=== PATIENT | female | born 1965 | race Caucasian/White ===

== ENCOUNTER 2024-10-26 14:57 | Observation (INO) ==
[2024-10-26 15:44] LABS: Basophils #(Absolute) Auto 0.1 (0.0-0.1); Basophils%(Percent) Auto 1.4 (0.1-0.85); Eosinophils#(Absolute)Auto 0.1 (0.0-0.2); Eosinophils%(Percent) Auto 1.8 % (0.4-2.8); Granulocytes % - Auto 73.7 % (47.8-71.3); Granulocytes#(Absolute)- Auto 4.5 (2.3-6.0); Hematocrit 34.4 % (35.9-46.7); Mean Corpuscular Volume 93.1 fl (81.0-93.7); Monocytes #(Absolute)- Auto 0.6 (1.1-3.1); Monocytes %(Percent)- Auto 9.3 % (3.6-9.8); Platelet Count 194 K/uL (152-353); White Blood Count 6.1 K/uL (4.3-9.3)
--- NOTE | 2024-10-26 15:51 | Emergency Department Note ---
HPI - Chest Pain General Chief Complaint: Chest Pain Stated Complaint: chest pain at dialysis Source: patient Mode of arrival: ambulance Limitations: no limitations History of Present Illness HPI narrative: The patient is 59 years old female resident of the group home who is brought to the ED from dialysis after she developed chest pain during dialysis. Patient states that her pain is mainly on the left and radiates to the back. She denies diaphoresis or radiation to the Upper extremities. MD complaint: Reports chest pain Pertinent past history: Reports coronary artery disease Onset (ago): hour(s) Prior episodes: Yes Onset: Reports during rest Pain location: Reports left chest Pain radiation: Reports left scapula Severity: mild-moderate Quality: Reports sharp Treatment prior to arrival: Reports none Risk Factors Coronary artery disease risk factors: Reports hypertension Related Data On Oral Contraceptives: No Allergies Allergy/AdvReac Type Severity Reaction Status Date / Time tramadol Allergy Unknown Verified 10/26/24 15:42 amoxicillin (From Amoxil) Allergy Verified 10/26/24 15:42 Review of Systems Status of ROS 10 or more systems reviewed and unremark able except as noted in history and below Constitutional Denies: fever, chills, change in weight, fatigue, malaise or night sweats Eyes Denies: change in vision, blurry vision, blind spots, light sensitivity or eye discomfort Ears, nose, mouth, and throat Denies: throat pain, neck pain, throat swelling, difficulty swallowing, hoarseness or mouth pain Cardiovascular Reports: chest pain; Denies: palpitations, edema, swelling of feet/ankles or lightheadedness Respiratory Denies: shortness of breath, cough, wheezing, stridor, pain on inspiration or change in phlegm color Gastrointestinal Denies: abdominal pain, nausea, vomiting, coffee grounds in vomit or heartburn Genitourinary Denies: painful urination, urinary frequency, urinary urgency, urinary incontinence or blood in urine Musculoskeletal Denies: back pain, neck pain, extremity pain, extremity swelling or joint pain Neurological Denies: headache, numbness in extremities, weakness in extremities, lack of coordination or dizziness Psychiatric Denies: anxiety, mood swings, panic attacks, change in sleep pattern, hopelessness or loss of interest Endocrine Denies: excessive urination, excessive thirst, fatigue, cold intolerance or excessive sweating Hematologic/Lymphatic Denies: easy bruising, easy bleeding, enlarged lymph nodes or other Allergic/Immunologic Denies: hives, throat swelling, tongue swelling, facial swelling or wheezing Exam Constitutional: normal general appearance, no apparent distress, average body habitus, no limitations and alert Vital Signs - 24 hr 10/26/24 15:00 10/26/24 15:00 10/26/24 15:30 Temperature 98.6 F Pulse Rate 112 H 110 H Respiratory Rate 21 22 Blood Pressure 134/70 136/75 Pulse Oximetry 88 L 88 L 92 L Oxygen Delivery Me thod Room Air Room Air Nasal Cannula Oxygen Flow Rate 2 10/26/24 16:00 10/26/24 16:30 10/26/24 16:40 Temperature Pulse Rate 102 H 94 H Respiratory Rate 20 20 Blood Pressure 122/75 126/94 122/75 Pulse Oximetry 95 94 L Oxygen Delivery Me thod Nasal Cannula Nasal Cannula Oxygen Flow Rate 2 2 10/26/24 17:00 10/26/24 17:30 Temperature Pulse Rate 93 H 95 H Respiratory Rate 20 21 Blood Pressure 127/90 127/97 Pulse Oximetry 93 L 90 L Oxygen Delivery Me thod Nasal Cannula Nasal Cannula Oxygen Flow Rate 2 2 HENMT: normocephalic, head/scalp atraumatic, hearing grossly normal bilaterally and external ears normal Eyes: PERRL, EOMs intact bilaterally, conjunctivae normal and no scleral icterus Neck/C-Spine: visual inspection normal, trachea midline, cervical spine nontender and cervical full ROM noted Lymph: no lymphadenopathy noted and no lymphedema noted Chest: inspection of chest normal, palpation of chest normal and inspection of breasts normal Respiratory: breath sounds equal bilaterally, normal respiratory effort and clear to auscultation bilaterally Cardiovascular: normal heart rate noted, regular rhythm noted, no gallop and no rub Gastrointestinal: abdomen normal to inspection, abdomen soft to palpation and nontender to palpation Genitourinary: no CVA tenderness and bladder normal to palpation Back/Pelvis: spine normal to inspection, no thoracic spine tenderness, no lumbar spine tenderness and thoracic spine ROM normal Extremities: normal to inspection, normal to palpation and no tenderness Neurology: machine sander II-XII intact, no movement abnormality noted and no focal motor deficit noted Psychiatry: mental status grossly normal, oriented x3, thought process normal and cooperative Feel stressed/tense/nervous/anxious/difficulty sleeping: not at all Due to disability, difficulty making decisions: No Skin: skin color normal, no rash, no lesions, no ecchymosis noted and no wounds Course Course Hospital Course: 59 years old female resident of the group home who is brought to the ED from dialysis after she developed chest pain during dialysis. Patient states that her pain is mainly on the left and radiates to the back. She denies diaphoresis or radiation to the Upper extremities. EKG showed no acute finding. Chest x-ray showed no acute cardiopulmonary process. Labs were significant for elevated kidney function. Troponins are elevated to 100. This appears to be her baseline. Due to ongoing chest pain we will admit the patient on the floor for observation. Vital Signs Vital signs: Vital Signs Temperature 98.6 F 10/26/24 15:00 Pulse Rate 112 H 10/26/24 15:00 Respiratory Rate 21 10/26/24 15:00 Blood Pressure 134/70 10/26/24 15:00 Pulse Oximetry 88 L 10/26/24 15:00 Oxygen Delivery Method Room Air 10/26/24 15:00 Temperature 98.6 F 10/26/24 15:00 Pulse Rate 104 H 10/26/24 18:30 Respiratory Rate 22 10/26/24 18:30 Blood Pressure 137/90 10/26/24 18:30 Pulse Oximetry 93 L 10/26/24 18:30 Oxygen Delivery Method Nasal Cannula 10/26/24 18:30 Oxygen Flow Rate 2 10/26/24 18:30 MDM - Chest Pain MDM Narrative Medical decision making narrative: Spoke with Stephanie from utilization review concerning admission of the patient. I have also spoken with Dr. Durham concerning the patient condition and she has accepted the patient and will take her at her current lab levels. Patient will be prepared for admission. Differential Diagnosis Differential diagnosis: Likely stable angina, atypical chest pain and chest pain Lab Data Labs: Lab Results 10/26/24 Range/Units 15:41 WBC 6.1 (4.3-9.3) K/uL RBC 3.7 L (4.00-5.50) M/uL Hgb 11.0 L (12.5-15.8) gm/dL Hct 34.4 L (35.9-46.7) % MCV 93.1 (81.0-93.7) fl MCH 29.7 (27.6-32.2) pg MCHC 31.9 L (33.1-35.3) g/dl RDW 24.7 H (11.4-14.2) % Plt Count 194 (152-353) K/uL MPV 8.1 (6.9-10.8) fl Gran % 73.7 H (47.8-71.3) % Lymph % (Auto) 13.8 L (20.0-43.0) % Cotton % (Auto) 9.3 (3.6-9.8) % Eos % (Auto) 1.8 (0.4-2.8) % Baso % (Auto) 1.4 H (0.1-0.85) Lymph # (Auto) 0.8 L (1.1-3.1) Cotton # (Auto) 0.6 L (1.1-3.1) Eos # (Auto) 0.1 (0.0-0.2) Baso # (Auto) 0.1 (0.0-0.1) Absolute Gran (auto) 4.5 (2.3-6.0) Sodium 142 (136-145) mmol/L Potassium 3.4 L (3.6-5.2) mmol/L Chloride 101.0 (98-107) mmol/L Carbon Dioxide 30 (21-32) mmol/L Anion Gap 11.0 (4-14) mEq/L BUN 25 H (7-18) mg/dL Creatinine 3.8 H* (0.6-1.3) mg/dL Estimated GFR 13.2 (>59.9) Glucose 92 (70-110) mg/dL Calcium 8.5 (8.5-10.1) mg/dL Total Bilirubin 0.93 (0.0-1.0) mg/dL AST 13 L (15-37) U/L ALT 16 L (30-65) U/L Alkaline Phosphatase 102 (50-136) U/L Troponin I High Sens 100.60 H* (4.0-60.4) ng/L Total Protein 6.2 L (6.4-8.2) g/dL Albumin 3.2 L (3.4-5.0) g/dL Imaging Data Imaging ordered: Chest x-ray Attestation: I personally reviewed and interpreted this imaging study as follows: My impression: No acute cardiopulmonary process noted ECG Data Attestation: I personally reviewed and interpreted this ECG as follows: ECG interpretation date: 10/26/24 ECG interpretation time: 03:35 Interpretation: Atrial fibrillation with a ventricular rate of 95. Discharge Plan Discharge Patient Disposition: Admitted As Observation Condition: Improved Clinical Impression: Chest pain, Atypical chest pain, End-stage renal disease on hemodialysis, Anemia due to chronic kidney disease, Elevated troponin Time of Disposition: 17:42 [facility] Medical History Chronic renal failure Hypertension Congestive heart failure Social History (Updated 08/31/24 @ 05:17 by Bria Vences APRN) Smoking status: never smoker Within the past year, how often did you have a drink containing alcohol: never Score interpretation: A score less than 3 is consistent with normal alcohol consumption. Non-prescribed substance use: denies use What is your current living situation: I have a place to live at present, but am concerned about future Problems where you live: no known problems In the past 12 months, utilities in danger of being shut off: no In past 12 months, lack of transportation kept you from medical appts, meetings, work, or getting things needed for daily living: No Known occupational exposures/hazards: No Feel stressed/tense/nervous/anxious/difficulty sleeping: not at all Life stressor details: Current medical condition Due to disability, difficulty making decisions: No
[2024-10-26 16:00] LABS: Potassium 3.4 mmol/L (3.6-5.2)
[2024-10-26] MEDS: NITROGLYCERIN 0.4 MG TAB.SUBL (BOTTLE) SL ONE (16:40)
[2024-10-26] MEDS ORDERED: MORPHINE SULFATE 2 MG/ML CARTRIDGE IV ONE (17:29)
[2024-10-26] MEDS: MORPHINE SULFATE 2 MG/ML CARTRIDGE IV ONE (17:31)
[2024-10-26] MEDS ORDERED: ONDANSETRON HCL/PF 4 MG/2 ML VIAL INJ PRN (17:42)
[2024-10-26] MEDS: NITROGLYCERIN 0.4 MG TAB.SUBL SL ONE (18:59)
[2024-10-26] MEDS: MORPHINE SULFATE 2 MG/ML CARTRIDGE IV PRN (21:09)
[2024-10-27 05:56] LABS: Basophils #(Absolute) Auto 0.1 (0.0-0.1); Basophils%(Percent) Auto 1.5 (0.1-0.85); Eosinophils#(Absolute)Auto 0.1 (0.0-0.2); White Blood Count 5.5 K/uL (4.3-9.3)
[2024-10-27 05:58] LABS: Eosinophils%(Percent) Auto 2.1 % (0.4-2.8); Granulocytes % - Auto 77.7 % (47.8-71.3); Granulocytes#(Absolute)- Auto 4.3 (2.3-6.0); Mean Corpuscular Volume 93.6 fl (81.0-93.7); Monocytes #(Absolute)- Auto 0.5 (1.1-3.1); Monocytes %(Percent)- Auto 9.2 % (3.6-9.8); Platelet Count 181 K/uL (152-353)
[2024-10-27 06:28] LABS: Potassium 3.7 mmol/L (3.6-5.2)
[2024-10-27 07:36] VITALS: BP 135/87; PULSE 99; RESP 19; TEMP 96.1
[2024-10-27] MEDS: ACETAMINOPHEN 325 MG TABLET PO PRN (08:30)
--- NOTE | 2024-10-27 10:12 | Short Stay Summary ---
H&P: HPI History of Present Illness Chief complaint: Chest Pain Narrative: This is a 59-year-old female patient with past medical history including A-fib, Anemia in CKD, hypertension, CHF and end-stage renal disease on dialysis who presented to the ER on yesterday afternoon for complaints of chest pain following dialysis. Patient reports this is the second or third time that she has had these pains following her dialysis treatment. Patient reports pain mainly on the left side and radiates through to her back. Denies any diaphoresis or radiation into her upper extremities. Cardiac workup was performed in the ER. EKG showed no acute findings. Chest x-ray showed no acute cardiopulmonary process. Labs were significant for elevated kidney function. And troponin elevated 100 which appears to be her baseline. Due to ongoing chest pain she was admitted to the floor for observation cardiac rule out. Her observation stay was uneventful. Troponin trended down to 93.4 on this morning's labs. She denies any chest pain at present however she has continued to have left upper back pain. We are treating this with a muscle relaxer today and she will be discharged back home to the LTC. Review of Systems Status of ROS 10 or more systems reviewed and unremark able except as noted in history and below Constitutional Denies: fever, chills, change in weight, fatigue, malaise or night sweats Eyes Denies: change in vision, blurry vision, blind spots, light sensitivity or eye discomfort Ears, nose, mouth, and throat Denies: throat pain, neck pain, throat swelling, difficulty swallowing, hoarseness or mouth pain Cardiovascular Denies: chest pain, palpitations, edema, swelling of feet/ankles, lightheadedness or shortness of breath with exertion Respiratory Denies: shortness of breath, cough, wheezing, stridor, pain on inspiration or change in phlegm color Gastrointestinal Denies: abdominal pain, nausea, vomiting, coffee grounds in vomit, heartburn or difficulty swallowing Genitourinary Denies: painful urination, urinary frequency, urinary urgency, urinary incontinence or blood in urine Musculoskeletal Reports: back pain; Denies: neck pain, extremity pain, extremity swelling or joint pain Integumentary/Breast Denies: rash, skin swelling or jaundice Neurological Denies: headache, numbness in extremities, weakness in extrem ities, lack of coordination or dizziness Psychiatric Denies: anxiety, mood swings, panic attacks, change in sleep pattern, hopelessness or loss of interest Endocrine Denies: excessive urination, excessive thirst, fatigue, cold intolerance or excessive sweating Hematologic/Lymphatic Reports: easy bruising and easy bleeding; Denies: enlarged lymph nodes Allergic/Immunologic Denies: hives, throat swelling, tongue swelling, facial swelling or wheezing PFS PFSH Medical History Chronic renal failure Hypertension Congestive heart failure Influenza Social History Smoking status: never smoker Within the past year, how often did you have a drink containing alcohol: never Score interpretation: A score less than 3 is consistent with normal alcohol consumption. Non-prescribed substance use: denies use What is your current living situation: I have a place to live at present, but am concerned about future Problems where you live: no known problems In the past 12 months, utilities in danger of being shut off: no In past 12 months, lack of transportation kept you from medical appts, meetings, work, or getting things needed for daily living: No Known occupational exposures/hazards: No Highest level of school completed/degree received: [employer] Feel stressed/tense/nervous/anxious/difficulty sleeping: not at all Life stressor details: Current medical condition Due to disability, difficulty making decisions: No Meds Home Medications and Allergies Home Medications Medication Instructions Recorded Confirmed Type acetaminophen 325 mg tablet 650 mg PO Q6H PRN fever or pain 10/26/24 10/26/24 History apixaban 5 mg tablet (Eliquis) 5 mg PO Q12H 10/26/24 10/26/24 History atorvastatin 40 mg tablet 40 mg PO .hs 10/26/24 10/26/24 History citalopram 20 mg tablet 20 mg PO DAILY 10/26/24 10/26/24 History furosemide 80 mg tablet 80 mg PO .COMPLEX 10/26/24 10/27/24 History levothyroxine 25 mcg tablet 25 mcg PO DAILY 10/26/24 10/26/24 History metoprolol succinate 25 mg 25 mg PO DAILY 10/26/24 10/26/24 History tablet,extended release 24 hr pantoprazole 40 mg tablet,delayed 40 mg PO DAILY 10/26/24 10/26/24 History release sertraline 25 mg tablet 25 mg PO DAILY 10/26/24 10/26/24 History sodium zirconium cyclosilicate 10 10 g PO DAILY 10/26/24 10/26/24 History gram oral powder packet (Lokelma) Allergies Allergy/AdvReac Type Severity Reaction Status Date / Time tramadol Allergy Unknown Verified 10/26/24 15:42 amoxicillin (From Amoxil) Allergy Verified 10/26/24 15:42 Exam Constitutional: abnormal general appearance (disheveled), (chronically ill) and (appears older than stated age), no apparent distress, abnormal body habitus (obese), limitations noted (physical limitations) and alert Vital Signs - 24 hr 10/26/24 15:00 10/26/24 15:00 10/26/24 15:30 Temperature 98.6 F Pulse Rate 112 H 110 H Pulse Rate [Right Radial] Pulse Rate [Right] Respiratory Rate 21 22 Blood Pressure 134/70 136/75 Blood Pressure [Ri ght Arm] Pulse Oximetry 88 L 88 L 92 L Oxygen Delivery Me thod Room Air Room Air Nasal Cannula Oxygen Flow Rate 2 10/26/24 16:00 10/26/24 16:30 10/26/24 16:40 Temperature Pulse Rate 102 H 94 H Pulse Rate [Right Radial] Pulse Rate [Right] Respiratory Rate 20 20 Blood Pressure 122/75 126/94 122/75 Blood Pressure [Ri ght Arm] Pulse Oximetry 95 94 L Oxygen Delivery Me thod Nasal Cannula Nasal Cannula Oxygen Flow Rate 2 2 10/26/24 17:00 10/26/24 17:30 10/26/24 18:00 Temperature Pulse Rate 93 H 95 H 91 H Pulse Rate [Right Radial] Pulse Rate [Right] Respiratory Rate 20 21 19 Blood Pressure 127/90 127/97 133/96 Blood Pressure [Ri ght Arm] Pulse Oximetry 93 L 90 L 88 L Oxygen Delivery Me thod Nasal Cannula Nasal Cannula Nasal Cannula Oxygen Flow Rate 2 2 2 10/26/24 18:30 10/26/24 19:00 10/26/24 20:00 Temperature Pulse Rate 104 H 98 H 93 H Pulse Rate [Right Radial] Pulse Rate [Right] Respiratory Rate 22 20 20 Blood Pressure 137/90 118/71 135/83 Blood Pressure [Ri ght Arm] Pulse Oximetry 93 L 97 94 L Oxygen Delivery Me thod Nasal Cannula Nasal Cannula Nasal Cannula Oxygen Flow Rate 2 2 2 10/26/24 20:30 10/26/24 21:00 10/26/24 21:00 Temperature 98.6 F 97.9 F Pulse Rate 98 H Pulse Rate [Right Radial] 83 Pulse Rate [Right] Respiratory Rate 20 18 Blood Pressure 118/71 Blood Pressure [Ri ght Arm] 125/80 Pulse Oximetry 97 99 Oxygen Delivery Me thod Nasal Cannula Nasal Cannula Oxygen Flow Rate 2 2 10/26/24 21:00 10/26/24 23:54 10/27/24 04:00 Temperature 97.9 F 97.9 F 97.6 F Pulse Rate Pulse Rate [Right Radial] 94 H 101 H Pulse Rate [Right] 83 Respiratory Rate 18 18 18 Blood Pressure Blood Pressure [Ri ght Arm] 125/80 132/86 129/86 Pulse Oximetry 99 90 L 98 Oxygen Delivery Me thod Room Air Nasal Cannula Nasal Cannula Oxygen Flow Rate 2 2 10/27/24 07:34 Temperature 96.1 F L Pulse Rate Pulse Rate [Right Radial] 99 H Pulse Rate [Right] Respiratory Rate 19 Blood Pressure Blood Pressure [Ri ght Arm] 135/87 Pulse Oximetry 97 Oxygen Delivery Me thod Room Air Oxygen Flow Rate HENMT: normocephalic, head/scalp atraumatic, hearing grossly normal bilaterally and external ears normal Eyes: PERRL, EOMs intact bilaterally, conjunctivae normal and no scleral icterus Neck/C-Spine: visual inspection normal, trachea midline, cervical spine nontender and cervical full ROM noted Lymph: no lymphadenopathy noted and no lymphedema noted Chest: inspection of chest normal, palpation of chest normal and inspection of breasts normal Respiratory: breath sounds equal bilaterally, normal respiratory effort and clear to auscultation bilaterally Cardiovascular: normal heart rate noted, rhythm abnormal (A-fib) (irregular), no gallop and no rub Gastrointestinal: abdomen normal to inspection, abdomen soft to palpation and nontender to palpation Genitourinary: no CVA tenderness and bladder normal to palpation Back/Pelvis: spine normal to inspection, no thoracic spine tenderness, no lumbar spine tenderness and paraspinal muscle tenderness noted (Left upper) Extremities: normal to inspection, normal to palpation and no tenderness Neurology: complex care nurse II-XII intact, no movement abnormality noted, no focal motor deficit noted and gait abnormality noted (unable to access) Psychiatry: mental status grossly normal, oriented x3, thought process normal and cooperative Skin: skin color normal, no rash, no lesions, no ecchymosis noted, no wounds, no petechiae and no mottling Assessment and Plan Assessment and Plan (1) Chest pain: Assessment and Plan: Continuous surveillance monitor Dialysis Monday Continue to monitor labs as directed. Serial troponins-this a.m. troponin trending down Vital signs per protocol Continue home medications as directed On chronic anticoagulation- Eliquis Monitor intake and output Monitor daily weights Qualifiers: Chest pain type: unspecified Qualified Code(s): R07.9 - Chest pain, unspecified Code(s): R07.9 - Chest pain, unspecified (2) Congestive heart failure: Assessment and Plan: Dialysis Monday Continue to monitor labs as directed. Vital signs per protocol Continue home medications as directed Monitor intake and output Monitor daily weights Qualifiers: Heart failure chronicity: unspecified Heart failure type: unspecified Qualified Code(s): I50.9 - Heart failure, unspecified Code(s): I50.9 - Heart failure, unspecified (3) Atrial fibrillation: Assessment and Plan: Continuous surveillance monitor Dialysis Monday Continue to monitor labs as directed. Vital signs per protocol Continue home medications as directed On chronic anticoagulation- Eliquis Monitor intake and output Monitor daily weights Qualifiers: Atrial fibrillation type: unspecified chronic Qualified Code(s): I48.20 - Chronic atrial fibrillation, unspecified Code(s): I48.91 - Unspecified atrial fibrillation (4) End stage renal disease on dialysis: Assessment and Plan: Dialysis Monday Continue to monitor labs as directed. Continue home medications as directed Monitor intake and output Monitor daily weights Code(s): N18.6 - End stage renal disease; Z99.2 - Dependence on renal dialysis (5) Hypertension: Assessment and Plan: Dialysis Monday Continue to monitor labs as directed. Vital signs per protocol Continue home medications as directed Monitor intake and output Monitor daily weights Qualifiers: Hypertension type: primary hypertension Qualified Code(s): I10 - Essential (primary) hypertension Code(s): I10 - Essential (primary) hypertension (6) Back pain: Assessment and Plan: Continue home medications as directed Tizanidine 2 mg p.o. x 1 Qualifiers: Back pain laterality: left Back pain location: thoracic back pain Chronicity: chronic Qualified Code(s): M54.6 - Pain in thoracic spine; G89.29 - Other chronic pain Code(s): M54.9 - Dorsalgia, unspecified Plan Patient was admitted for IV hydration, electrolyte replacement as needed and cardiac monitoring with serial troponins. Chest pain has resolved. She has continued with complaints of back pain. This will was treated with one- time dose of muscle relaxer. Plan to continue with PT/OT eval and treatment on discharge back to LTC. Continue with home medications as directed. Continue with with dialysis As scheduled-Monday Continue with chronic anticoagulation-Eliquis. Discharged back home to LTC. Results Labs Labs: CBC 10/26/24 10/26/24 10/27/24 15:41 18:20 04:50 WBC 6.1 5.5 RBC 3.7 L 3.5 L Hgb 11.0 L 10.6 L Hct 34.4 L 33.0 L MCV 93.1 93.6 MCH 29.7 30.1 MCHC 31.9 L 32.1 L RDW 24.7 H 24.2 H Plt Count 194 181 MPV 8.1 7.7 Gran % 73.7 H 77.7 H Lymph % (Auto) 13.8 L 9.5 L [place] % (Auto) 9.3 9.2 Eos % (Auto) 1.8 2.1 Baso % (Auto) 1.4 H 1.5 H Lymph # (Auto) 0.8 L 0.5 L [place] # (Auto) 0.6 L 0.5 L Eos # (Auto) 0.1 0.1 Baso # (Auto) 0.1 0.1 Absolute Gran (auto) 4.5 4.3 Sodium 142 150 H Potassium 3.4 L 3.7 Chloride 101.0 108.0 H Carbon Dioxide 30 31 Anion Gap 11.0 11.0 BUN 25 H 35 H Creatinine 3.8 H* 4.5 H* Estimated GFR 13.2 10.7 Glucose 92 136 H Calcium 8.5 8.6 Phosphorus 4.9 Magnesium 1.8 Total Bilirubin 0.93 0.94 AST 13 L 15 ALT 16 L 18 L Alkaline Phosphatase 102 99 Troponin I High Sens 100.60 H* 110.00 H* Total Protein 6.2 L 6.1 L Albumin 3.2 L 3.2 L 10/27/24 08:40 WBC RBC Hgb Hct MCV MCH MCHC RDW Plt Count MPV Gran % Lymph % (Auto) [place] % (Auto) Eos % (Auto) Baso % (Auto) Lymph # (Auto) [place] # (Auto) Eos # (Auto) Baso # (Auto) Absolute Gran (auto) Sodium Potassium Chloride Carbon Dioxide Anion Gap BUN Creatinine Estimated GFR Glucose Calcium Phosphorus 5.2 H Magnesium Total Bilirubin AST ALT Alkaline Phosphatase Troponin I High Sens 93.40 H* Total Protein Albumin BMP 10/26/24 10/26/24 10/27/24 15:41 18:20 04:50 WBC 6.1 5.5 RBC 3.7 L 3.5 L Hgb 11.0 L 10.6 L Hct 34.4 L 33.0 L MCV 93.1 93.6 MCH 29.7 30.1 MCHC 31.9 L 32.1 L RDW 24.7 H 24.2 H Plt Count 194 181 MPV 8.1 7.7 Gran % 73.7 H 77.7 H Lymph % (Auto) 13.8 L 9.5 L [place] % (Auto) 9.3 9.2 Eos % (Auto) 1.8 2.1 Baso % (Auto) 1.4 H 1.5 H Lymph # (Auto) 0.8 L 0.5 L [place] # (Auto) 0.6 L 0.5 L Eos # (Auto) 0.1 0.1 Baso # (Auto) 0.1 0.1 Absolute Gran (auto) 4.5 4.3 Sodium 142 150 H Potassium 3.4 L 3.7 Chloride 101.0 108.0 H Carbon Dioxide 30 31 Anion Gap 11.0 11.0 BUN 25 H 35 H Creatinine 3.8 H* 4.5 H* Estimated GFR 13.2 10.7 Glucose 92 136 H Calcium 8.5 8.6 Phosphorus 4.9 Magnesium 1.8 Total Bilirubin 0.93 0.94 AST 13 L 15 ALT 16 L 18 L Alkaline Phosphatase 102 99 Troponin I High Sens 100.60 H* 110.00 H* Total Protein 6.2 L 6.1 L Albumin 3.2 L 3.2 L 10/27/24 08:40 WBC RBC Hgb Hct MCV MCH MCHC RDW Plt Count MPV Gran % Lymph % (Auto) [place] % (Auto) Eos % (Auto) Baso % (Auto) Lymph # (Auto) [place] # (Auto) Eos # (Auto) Baso # (Auto) Absolute Gran (auto) Sodium Potassium Chloride Carbon Dioxide Anion Gap BUN Creatinine Estimated GFR Glucose Calcium Phosphorus 5.2 H Magnesium Total Bilirubin AST ALT Alkaline Phosphatase Troponin I High Sens 93.40 H* Total Protein Albumin Cardiac Enzymes 10/26/24 10/26/24 10/27/24 15:41 18:20 04:50 WBC 6.1 5.5 RBC 3.7 L 3.5 L Hgb 11.0 L 10.6 L Hct 34.4 L 33.0 L MCV 93.1 93.6 MCH 29.7 30.1 MCHC 31.9 L 32.1 L RDW 24.7 H 24.2 H Plt Count 194 181 MPV 8.1 7.7 Gran % 73.7 H 77.7 H Lymph % (Auto) 13.8 L 9.5 L [place] % (Auto) 9.3 9.2 Eos % (Auto) 1.8 2.1 Baso % (Auto) 1.4 H 1.5 H Lymph # (Auto) 0.8 L 0.5 L [place] # (Auto) 0.6 L 0.5 L Eos # (Auto) 0.1 0.1 Baso # (Auto) 0.1 0.1 Absolute Gran (auto) 4.5 4.3 Sodium 142 150 H Potassium 3.4 L 3.7 Chloride 101.0 108.0 H Carbon Dioxide 30 31 Anion Gap 11.0 11.0 BUN 25 H 35 H Creatinine 3.8 H* 4.5 H* Estimated GFR 13.2 10.7 Glucose 92 136 H Calcium 8.5 8.6 Phosphorus 4.9 Magnesium 1.8 Total Bilirubin 0.93 0.94 AST 13 L 15 ALT 16 L 18 L Alkaline Phosphatase 102 99 Troponin I High Sens 100.60 H* 110.00 H* Total Protein 6.2 L 6.1 L Albumin 3.2 L 3.2 L 10/27/24 08:40 WBC RBC Hgb Hct MCV MCH MCHC RDW Plt Count MPV Gran % Lymph % (Auto) [place] % (Auto) Eos % (Auto) Baso % (Auto) Lymph # (Auto) [place] # (Auto) Eos # (Auto) Baso # (Auto) Absolute Gran (auto) Sodium Potassium Chloride Carbon Dioxide Anion Gap BUN Creatinine Estimated GFR Glucose Calcium Phosphorus 5.2 H Magnesium Total Bilirubin AST ALT Alkaline Phosphatase Troponin I High Sens 93.40 H* Total Protein Albumin Liver Function 10/26/24 10/26/24 10/27/24 15:41 18:20 04:50 WBC 6.1 5.5 RBC 3.7 L 3.5 L Hgb 11.0 L 10.6 L Hct 34.4 L 33.0 L MCV 93.1 93.6 MCH 29.7 30.1 MCHC 31.9 L 32.1 L RDW 24.7 H 24.2 H Plt Count 194 181 MPV 8.1 7.7 Gran % 73.7 H 77.7 H Lymph % (Auto) 13.8 L 9.5 L [place] % (Auto) 9.3 9.2 Eos % (Auto) 1.8 2.1 Baso % (Auto) 1.4 H 1.5 H Lymph # (Auto) 0.8 L 0.5 L [place] # (Auto) 0.6 L 0.5 L Eos # (Auto) 0.1 0.1 Baso # (Auto) 0.1 0.1 Absolute Gran (auto) 4.5 4.3 Sodium 142 150 H Potassium 3.4 L 3.7 Chloride 101.0 108.0 H Carbon Dioxide 30 31 Anion Gap 11.0 11.0 BUN 25 H 35 H Creatinine 3.8 H* 4.5 H* Estimated GFR 13.2 10.7 Glucose 92 136 H Calcium 8.5 8.6 Phosphorus 4.9 Magnesium 1.8 Total Bilirubin 0.93 0.94 AST 13 L 15 ALT 16 L 18 L Alkaline Phosphatase 102 99 Troponin I High Sens 100.60 H* 110.00 H* Total Protein 6.2 L 6.1 L Albumin 3.2 L 3.2 L 10/27/24 08:40 WBC RBC Hgb Hct MCV MCH MCHC RDW Plt Count MPV Gran % Lymph % (Auto) [place] % (Auto) Eos % (Auto) Baso % (Auto) Lymph # (Auto) [place] # (Auto) Eos # (Auto) Baso # (Auto) Absolute Gran (auto) Sodium Potassium Chloride Carbon Dioxide Anion Gap BUN Creatinine Estimated GFR Glucose Calcium Phosphorus 5.2 H Magnesium Total Bilirubin AST ALT Alkaline Phosphatase Troponin I High Sens 93.40 H* Total Protein Albumin Urine 10/26/24 10/26/24 10/27/24 15:41 18:20 04:50 WBC 6.1 5.5 RBC 3.7 L 3.5 L Hgb 11.0 L 10.6 L Hct 34.4 L 33.0 L MCV 93.1 93.6 MCH 29.7 30.1 MCHC 31.9 L 32.1 L RDW 24.7 H 24.2 H Plt Count 194 181 MPV 8.1 7.7 Gran % 73.7 H 77.7 H Lymph % (Auto) 13.8 L 9.5 L [place] % (Auto) 9.3 9.2 Eos % (Auto) 1.8 2.1 Baso % (Auto) 1.4 H 1.5 H Lymph # (Auto) 0.8 L 0.5 L [place] # (Auto) 0.6 L 0.5 L Eos # (Auto) 0.1 0.1 Baso # (Auto) 0.1 0.1 Absolute Gran (auto) 4.5 4.3 Sodium 142 150 H Potassium 3.4 L 3.7 Chloride 101.0 108.0 H Carbon Dioxide 30 31 Anion Gap 11.0 11.0 BUN 25 H 35 H Creatinine 3.8 H* 4.5 H* Estimated GFR 13.2 10.7 Glucose 92 136 H Calcium 8.5 8.6 Phosphorus 4.9 Magnesium 1.8 Total Bilirubin 0.93 0.94 AST 13 L 15 ALT 16 L 18 L Alkaline Phosphatase 102 99 Troponin I High Sens 100.60 H* 110.00 H* Total Protein 6.2 L 6.1 L Albumin 3.2 L 3.2 L 10/27/24 08:40 WBC RBC Hgb Hct MCV MCH MCHC RDW Plt Count MPV Gran % Lymph % (Auto) [place] % (Auto) Eos % (Auto) Baso % (Auto) Lymph # (Auto) [place] # (Auto) Eos # (Auto) Baso # (Auto) Absolute Gran (auto) Sodium Potassium Chloride Carbon Dioxide Anion Gap BUN Creatinine Estimated GFR Glucose Calcium Phosphorus 5.2 H Magnesium Total Bilirubin AST ALT Alkaline Phosphatase Troponin I High Sens 93.40 H* Total Protein Albumin ECG Attestation: I have reviewed the pertinent ECG results. ECG interpretation date: 10/27/24 ECG interpretation time: 08:52 Prior ECG tracings: available for review Interpretation: Atrial fibrillation Rate 105 No change from previous EKG DS: Providers Provider Date of admission: 10/26/24 17:42 Primary care physician: JAQUELINE AMEZQUITA Admitting clinician: Any Edmondson Attending physician on admission: Leila Durham Attending physician on discharge: Leila Durham Discharging clinician: Sarah Jo Anticipated date of discharge: 10/27/24 DS: Summary Hospital Course Hospital Course: This is a 59-year-old female patient with past medical history including A-fib, Anemia in CKD, hypertension, CHF and end-stage renal disease on dialysis who presented to the ER on yesterday afternoon for complaints of chest pain follo wing dialysis. Patient reports this is the second or third time that she has had these pains following her dialysis treatment. Patient reports pain mainly on the left side and radiates through to her back. Denies any diaphoresis or radiation into her upper extremities. Cardiac workup was performed in the ER. EKG showed no acute findings. Chest x-ray showed no acute cardiopulmonary process. Labs were significant for elevated kidney function. And troponin elevated 100 which appears to be her baseline. Due to ongoing chest pain she was admitted to the floor for observation cardiac rule out. Her observation stay was uneventful. Troponin trended down to 93.4 on this morning's labs. She denies any chest pain at present however she has continued to have left upper back pain. We are treating this with a muscle relaxer today and she will be discharged back home to the LTC. Status at Discharge Cognitive/behavioral status at discharge: Alert and oriented Overall status at discharge: patient is progressing back to baseline Time Spent with Patient Time attestation: Total time spent providing and/or coordinating discharge services: Time spent: greater than 30 minutes Discharge Plan Discharge Disposition: er [facility] Condition: Improved Discharge Medications: Continued Eliquis 5 mg tablet 5 mg PO Q12H atorvastatin 40 mg tablet 40 mg PO .hs citalopram 20 mg tablet 20 mg PO DAILY furosemide 80 mg tablet 80 mg PO .COMPLEX Rx Instructions: 80 mg orally on Tues, Th, Sat; levothyroxine 25 mcg tablet 25 mcg PO DAILY metoprolol succinate 25 mg tablet extended release 24 hr 25 mg PO DAILY pantoprazole 40 mg tablet,delayed release (DR/EC) 40 mg PO DAILY sertraline 25 mg tablet 25 mg PO DAILY Lokelma 10 gram powder in packet 10 g PO DAILY acetaminophen 325 mg tablet 650 mg PO Q6H PRN (Reason: fever or pain) Discharge Orders: Discharge Order (Routine); Ordered 10/27/24 Ordered By: Sarah Jo Activity: as per physical therapy, increase activity as tolerated and resume usual activities as tolerated Diet: advance to your usual diet Hospital Course: This is a 59-year-old female patient with past medical history including A-fib, Anemia in CKD, hypertension, CHF and end-stage renal disease on dialysis who presented to the ER on yesterday afternoon for complaints of chest pain following dialysis. Patient reports this is the second or third time that she has had these pains following her dialysis treatment. Patient reports pain mainly on the left side and radiates through to her back. Denies any diaphoresis or radiation into her upper extremities. Cardiac workup was performed in the ER. EKG showed no acute findings. Chest x-ray showed no acute cardiopulmonary process. Labs were significant for elevated kidney function. And troponin elevated 100 which appears to be her baseline. Due to ongoing chest pain she was admitted to the floor for observation cardiac rule out. Her observation stay was uneventful. Troponin trended down to 93.4 on this morning's labs. She denies any chest pain at present however she has continued to have left upper back pain. We are treating this with a muscle relaxer today and she will be discharged back home to the LTC. Interventions: Discharge Assessment Last Done: 10/27/24 10:55 MED/SURG & ICU Observation Charge Sheet Last Done: 10/27/24 19:50 Print Language: [place] Patient Instructions: Angina (DC) Activity Restrictions/Additional Instructions: Continue to monitor daily weights. Continue to monitor vital signs per protocol Continue to monitor labs per protocol. Aggressive PT/OT Forms: Portal/Health Info Access Inst Follow-Ups: JAQUELINE AMEZQUITA [Other] Discharge Date/Time: 10/27/24 10:58
[2024-10-27] MEDS: TIZANIDINE HCL 4 MG TABLET PO ONE (10:50)
== END 2024-10-27 10:58 ==
LOC: ED 14:57 → MS 14:57
PROVIDERS: ADMIT Family Medicine; ATTEND Family Medicine